=== PATIENT | female | born 1960 | race Caucasian/White ===

== ENCOUNTER → 2019-05-24 10:48 | Outpatient (CLI) | payer OTHER, SELFPAY ==
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
== END ==
PROVIDERS: Referring Provider Physical Medicine & Rehabilitation; Visit Provider Physical Medicine & Rehabilitation
DX: S13.4XXA Sprain of ligaments of cervical spine, initial encounter (principal); M47.812 Spondylosis without myelopathy or radiculopathy, cervical region; M50.321 Other cervical disc degeneration at C4-C5 level; V89.2XXA Person injured in unspecified motor-vehicle accident, traffic, initial encounter
CPT/HCPCS: 72050

== ENCOUNTER → 2022-07-22 14:01 | Outpatient (CLI) | payer OTHER, SELFPAY ==
--- NOTE | 2022-07-22 14:09 | DI.RAD.S_ITS ---
PROCEDURE: XR CERVICAL SPINE 4V OR 5V INDICATIONS: NECK PAIN TECHNIQUE: 5 views of the cervical spine acquired. COMPARISON: [facility], CR, XR CERVICAL SPINE 4V OR 5V, 05/24/2019, 10:59. FINDINGS: Bones: No fractures or dislocations to the C7 level. Oblique images demonstrate no bony foraminal stenoses. Moderate disc height loss at C4-5, C5-6 and C6-7. Left-sided facet arthrosis C3 through C5. Soft tissues: No prevertebral soft tissue swelling. IMPRESSION: Moderate disc height loss at C4 through C7. Moderate facet arthrosis on the left side of C3 through C5. Dictated by: Inderjit Rojas M.D. on 07/22/2022 at 14:38 Approved by: Inderjit Rojas M.D. on 07/22/2022 at 14:39
== END ==
PROVIDERS: Referring Provider Physical Medicine & Rehabilitation; Visit Provider Physical Medicine & Rehabilitation
DX: M47.812 Spondylosis without myelopathy or radiculopathy, cervical region (principal)
CPT/HCPCS: 72050